=== PATIENT | female | born 1960 | race Two or more races ===

== ENCOUNTER 2017-08-19 19:45 | Emergency (ER) | payer SELFPAY ==
[~2017-08-19] VITALS: Ht 154.9 cm; Wt 74.8 kg
[2017-08-19 23:28] VITALS: BP 155/100
[2017-08-19] MEDS ORDERED: cefTRIAXone SOD 1,000 MG VL IM ONE (23:30)
== END 2017-08-19 23:35 | disposition home or self-care (01) ==
LOC: ER 19:45
DX: L03.012 Cellulitis of left finger (principal)
CPT/HCPCS: 96372; 99283; J0696

== ENCOUNTER 2022-03-01 12:55 | Emergency (ER) | payer MEDICAID, OTHER ==
[~2022-03-01] VITALS: Ht 157.5 cm; Wt 60.0 kg
[2022-03-01 16:30] VITALS: BP 135/90
[2022-03-01] MEDS ORDERED: CICL8SOL3 TOP (16:41)
== END 2022-03-01 17:32 | disposition home or self-care (01) ==
LOC: ER 12:55
DX: B35.1 Tinea unguium (principal)